=== PATIENT | male | born 1960 | race African-American/Black ===

== ENCOUNTER 2021-12-29 00:12 | Emergency (ER) | payer MEDICAID ==
[~2021-12-29] VITALS: Ht 182.9 cm; Wt 86.0 kg
[2021-12-29] MEDS ORDERED: IBUP-2028 MT (04:26)
[2021-12-29] MEDS ORDERED: CYCL10TA7 MT (04:26)
[2021-12-29 04:28] VITALS: BP 114/68
[2021-12-29] MEDS ORDERED: IBUPROFEN 400MG TABLET PO ONE (04:30)
[2021-12-29] MEDS ORDERED: CYCLOBENZAPRINE 10MG TABLET PO ONE (04:30)
== END 2021-12-29 04:44 | disposition home or self-care (01) ==
LOC: ER 00:12 → EDBD 00:12 → ER 04:44
DX: M54.2 Cervicalgia (principal); M54.50 Low back pain, unspecified; Z87.442 Personal history of urinary calculi; Z98.890 Other specified postprocedural states; V43.52XA Car driver injured in collision with other type car in traffic accident, initial encounter; Y93.89 Activity, other specified; Y92.488 Other paved roadways as the place of occurrence of the external cause
CPT/HCPCS: 99283